=== PATIENT | female | born 1935 | race Caucasian/White ===

== ENCOUNTER 2016-12-28 17:07 | Inpatient (IN) | payer MEDICARE, OTHER ==
[~2016-12-28] VITALS: Ht 160 cm; Wt 47.9 kg
--- NOTE | ~2016-12-28 | DS ---
ADMIT: 12/28/2016 RM/LOC: 524 [facility] MR#: [id number] [facility]#: [id number] [address] [address] ANAIJACOB LESTERHENRY Mariajose [address] [place] [address] General Discharge Summary SEX: F AGE: 81 : 1935 ADMISSION DATE: 12/28/2016 DISCHARGE DATE: 01/03/2017 ADMITTING DIAGNOSIS: Right lower lobe pneumonia. DISMISSAL DIAGNOSIS: Chronic obstructive pulmonary disease with acute exacerbation. COMPLICATING DIAGNOSES: 1. Hypokalemia. 2. Chronic atrial fibrillation, on anticoagulant therapy. 3. Hypomagnesemia. 4. Hypertension. 5. Chronic back pain. 6. Chronic malnutrition, low BMI. CHIEF COMPLAINT AND HISTORY OF PRESENT ILLNESS: An 81-year-old female, lives at home independently. She does live with her son and he does help care for her. She has a history of ongoing severe COPD and long-term history of loss of appetite and low weight and low BMI. For the last 10 days, she has been having more trouble breathing, coughing up sputum. She thought it was just her chronic obstructive pulmonary disease; however, she started coughing up more than normal amount of sputum and the color was a little bit darker than normal. She had no fever and no chest pain, but she did feel chilled. There had been no blood in the sputum. She was seen in the office on December 21, started on Cefdinir 300 mg b.i.d. Over the next 2 days, she thought she was getting better, and then over the last 48 hours, she felt like she was getting worse, more shortness of breath, became severe enough that she was brought by her son to the emergency room. Evaluation in the emergency room revealed right lower lobe pneumonia. She admitted for community-acquired pneumonia, COPD acute exacerbation, admitted for IV antibiotics and nebulizer treatments. The emergency room, her INR was markedly elevated at 7.6. She has history of AFib and is on chronic Coumadin therapy. Potassium in the ER was low at 3.2. Blood sugar was low at 53. Magnesium was low at 0.5. Procalcitonin was borderline at 1.4. She was started on IV Rocephin and Zithromax along with Twin Jet nebulizer DuoNeb treatments. Initial cardiac enzymes were negative. LABORATORY REPORTS: White count on December 29 was 7.5; on dismissal, it is 5.9. Hemoglobin on December 29 was 11.2. On January 01, hemoglobin was 10.9. December 28, white count was 5.6, hemoglobin was 12.7, platelets were 495,000. INR on admission was 7.6; after pharmacy protocol with oral vitamin K, the following day was 1.2; on December 31, it was 1.1; January 01, it was 1.4; on January 02, it was 2.3; and on January 03, INR was 3.41. Electrolytes prior to dismissal; sodium 142, potassium 4.7, chloride 105, CO2 of 30, BUN 11, creatinine 0.9, glucose 82. On December 29, her potassium was 3.2, blood sugar was 56, ALT was low at 9, magnesium was low at 0.5, calcium was 8.2, proBNP was 1216. Repeat magnesium level on December 29 was 1.7. On December 31, magnesium was 2.2. Lactic acid in the emergency room was 1.3, which is normal. CPK-MB, troponin I were normal. In the emergency ADMIT: 12/28/2016 RM/LOC: 524 [facility] MR#: [id number] [address] [address] [place] [address] General Discharge Summary SEX: F AGE: 81 : 1935 room. Blood sugar initially as mentioned was low at 53, repeat 2 hours later was 128, and the following day 118. Blood cultures x2 showed no growth. Stool for C. diff on January 02, was positive. Additional diagnosis would be C. diff enteritis. RADIOLOGY REPORTS: CTA of the lungs did not show any signs of pulmonary embolus. There were 2 pulmonary nodules, most compatible with neoplasm. There were prominent interstitial markings in the right middle lobe. Chest x-ray in the ER showed a right lower lobe pneumonia. Repeat chest x-ray findings showed no change. Third day chest x-ray showed persistent markings that correlate to recent CT malignancy must be excluded. EKG shows sinus tachycardia with PVCs; PACs; left axis deviation; possible anterior infarct, age-undetermined; inferolateral ST-T changes due to ischemia; low-voltage. COURSE IN THE HOSPITAL: Andre was admitted through the emergency room. Cultures were obtained. She was started on IV Zithromax and Rocephin, given oral vitamin K. Continued with her DuoNeb Twin Jet nebulizers. Potassium and magnesium were replaced. INR became subtherapeutic after the vitamin K. She was placed on subcutaneous Lovenox until her INR became therapeutic. CT scans with nodules were discussed with her. These have been noted the past year. At that time, she and her family elected not to have these biopsied. She felt if they were malignant, she was not going to have any chemo or radiation or surgery done, so preferred just to monitor these. She understands that there are growing in size and likely could be lung cancer, but she did not want to go to have any further treatment of these. She was clinically improved enough that she is able to be dismissed on home O2 with oral cefdinir and Zithromax, to be seen back for followup in 3 to 4 days in the office. INR was elevated as her Coumadin was held on the day of dismissal. Her new Coumadin dose will ADMIT: 12/28/2016 RM/LOC: 524 [facility] MR#: [id number] [address] [place] [address] ANDRE CRUZ [address] [place] [address] General Discharge Summary SEX: F AGE: 81 : 1935 be 1 mg daily. Check INR in 3 days in the office. She had: 1. P.r.n. hydrocodone. 2. Mag oxide 400 b.i.d. 3. Neurontin 100 mg at bedtime. 4. Lisinopril 20 mg daily for blood pressure. 5. Norvasc 5 mg daily for blood pressure. 6. Protonix changed back to omeprazole 20 mg daily. 7. Remeron 30 mg at bedtime. 8. Vitamin D supplements. 9. DuoNeb Twin Jet nebulizers p.r.n. Shan Peña MD/ tosin JOB #: [id number] CC: Shan Peña MD, Attending Physician Shan Peña MD, Family Physician
--- NOTE | 2016-12-29 14:35 | ER ---
ADMIT: 12/28/2016 RM/LOC: 524 [facility] MR#: [id number] [address] [address] ANDRE CRUZ [address] [place] [address] Emergency Room Report SEX: F AGE: 81 : 1935 DATE: 12/28/2016 ADDENDUM: An 81-year-old white female coming in with shortness of breath, coughing up purulent sputum. She has cardiac disease, lung disease, and COPD, was put on some antibiotic, I think last Tuesday, but has gotten worse since then. X-ray looks like she has a right middle lobe pneumonia. White count 7.4. Lactate is normal, but her INR is elevated at 7.61. I do believe, though that she has some early pneumonia. Will do the rest of the sepsis. At this time, her pressure has been fine. We will start her on antibiotic here. I spoke with Dr. Lawler, he will admit. CONDITION ON DISCHARGE: Serious but stable. Glynn Linares MD/ tosin JOB #: [id number] CC: Shan Peña MD, Attending Physician Shan Peña MD, Family Physician
--- NOTE | 2016-12-31 07:16 | HP ---
ADMIT: 12/28/2016 RM/LOC: 524 [facility] MR#: [id number] [facility]#: [id number] [address] [address] ANDRE CRUZ [address] [place] [address] History and Physical SEX: F AGE: 81 : 1935 CORRECTION: 12/30/2016 1516 [facility] DATE OF SERVICE: CHIEF COMPLAINT: Cough and shortness of breath. HISTORY OF PRESENT ILLNESS: This 81-year-old female, lives at home independently, however, she does live with her son, does help care for her. Andre has history of ongoing tobacco abuse and chronic obstructive pulmonary disease. She also has a fairly marked malnutrition and long-term anorexia. She states for the last week to week and a half, she was having more trouble breathing, coughing up sputum, but she thought it was just her COPD. She thought she was coughing up the normal amount of sputum, normal color which is a little bit darker for her. There has been no chest pain. No fever but she has felt cold. There has been no blood in the sputum. I believe she was seen in the office on December 21. In any event, on that day, she was started on cefdinir 300 mg p.o. b.i.d. Over the next couple of days, she thought she was getting better and then over the last 48 hours, she felt like she was getting worse, more shortness of breath. Became severe enough last evening when her son came home from work. He brought her to the emergency room. Evaluation in the emergency room revealed a right lower lobe pneumonia, and she was admitted for community-acquired pneumonia, COPD acute exacerbation, for IV antibiotics and nebulizer treatments. Also in the emergency room, her INR was elevated at 7.6. Her potassium was low at 3.2. Her blood sugar was low at 53. Magnesium was fairly low at 0.5. Procalcitonin was in the borderline range at 1.4. Cultures were obtained. She was started on IV Rocephin, IV Zithromax along with Twin Jet nebulizer treatments. Initial cardiac enzymes were negative. PAST MEDICAL HISTORY: Remote history of hypertension, depression, osteoarthritis, previous back surgery with a laminectomy, history of ganglion cyst removal right wrist, history of right total knee in 2003, in 2005 total abdominal hysterectomy and bilateral salpingo-oophorectomy, in 2006 a cholecystectomy. She also has GERD. ALLERGIES: NONE. MEDICATIONS: Include: 1. Potassium 10 mEq t.i.d. 2. Norvasc 5 mg daily. 3. Benazepril 20 mg daily. 4. Neurontin 600 mg daily. 5. Xanax 0.25 mg t.i.d. p.r.n. anxiety. 6. Bupropion XL 150 mg p.o. daily. 7. Coumadin alternating 1 mg five days a week and 1.5 mg two days a week. 8. Omeprazole 40 mg daily. 9. Lortab 5 one b.i.d. for pain. 10.ProAir p.r.n. 11.Recent cefdinir 300 mg b.i.d. ADMIT: 12/28/2016 RM/LOC: 524 [facility] MR#: [id number] [address] [place] [id number] ANDRE CRUZ [address] [place] [address] History and Physical SEX: F AGE: 81 : 1935 12.Vitamin D 5000 units daily. 13.Albuterol nebulizer treatments p.r.n. SOCIAL HISTORY: She quit smoking in 2013. Does not use alcohol. As mentioned, she lives with her son and is fairly independent. FAMILY HISTORY: Positive for cancer in mother and grandmother. Sister with hypertension. Daughter with seizure disorder. REVIEW OF SYSTEMS: GENERAL: States her appetite has been declining over the last year or two. Her weight has been chronically low. She is 106 pounds now which is fairly close to her baseline of 110 pounds. She says she tries to take Ensure, but it gives her diarrhea. HEENT: Denies any headache, blurry vision, or double vision. PULMONARY: The cough, productive of yellowish greenish sputum but no blood in it. She has chronic obstructive pulmonary disease. She is on room air at home and nebulizer treatments at home. She does continue to use cigarettes half a pack to a pack per day. CARDIAC: History of hypertension, treated. She denies any chest pain. Additional cardiac would be history of atrial fibrillation that is why she is on the Coumadin. GI: Prior history of GERD and reflux, but it is fairly well controlled with the proton pump inhibitor. She also has some loose stools when she tries dietary supplements. : Denies any urinary issues. MUSCULOSKELETAL: Generalized weakness and osteoarthritis. Chronic back pain for which she takes Lortab. NEUROLOGICAL: Negative. PSYCH: Positive for anxiety and depression. The rest of the review of systems negative. PHYSICAL EXAMINATION: GENERAL: An 81-year-old female, appears cachectic. HEENT: Weight as mentioned 106 pounds. BP is 113/60, pulse is 88 and irregular, respiratory rate is 22, O2 saturation is 94% on room air. HEENT: Eyes PERRLA. EOMs intact. Sclerae nonicteric. TMs are not seen. Throat is moist, well hydrated, not inflamed. NECK: Supple. No lymphadenopathy. No thyromegaly. LUNGS: Show decreased breath sounds throughout with scattered rhonchi on the right lower lobe. Occasional expiratory wheeze. HEART: Irregularly irregular. Grade 1/6 systolic murmur. ABDOMEN: Soft. No organomegaly or tenderness. /RECTAL: Deferred. EXTREMITIES: No clubbing, cyanosis, or edema. LAB: As noted above. Her INR is elevated at 7.61, glucose is low at 56. Initially, she was given some orange juice and repeat blood sugar was 53. Potassium was low at 3.2. Lactic acid normal at 1.3. Magnesium low at 0.5. ADMIT: 12/28/2016 RM/LOC: 524 [facility] MR#: [id number] [address] [facility] [address] [place] [id number] [address] [address] History and Physical SEX: F AGE: 81 : 1935 Procalcitonin borderline at 1.4. DIAGNOSTIC IMPRESSION: 1. Right lower lobe pneumonia. 2. Chronic obstructive pulmonary disease, acute exacerbation. 3. Hypomagnesemia. 4. Hypokalemia. 5. Atrial fibrillation, on Coumadin therapy with a supratherapeutic INR. 6. Hypertension. 7. Chronic back pain. PLAN: She was admitted. Cultures were obtained. She was started on IV Rocephin, IV Zithromax. Coumadin was held. She is placed on INR reversal protocol per Pharmacy with oral vitamin K. We will monitor her INR. She was given oral potassium, oral magnesium plus some IV magnesium. We will add potassium to her IV. We will monitor electrolytes and nutritional supplements. Shan Peña MD/ tosin JOB #: [id number] CC: Shan Peña MD, Attending Physician Shan Peña MD, Family Physician CORRECTION: 12/30/2016 1516 [facility]
[2017-01-04] MEDS ORDERED: AMLODIPINE-BEN1 EAC4 PO (16:08)
[2017-01-04] MEDS ORDERED: NEURONTIN DPS100 MG PO (16:08)
[2017-01-04] MEDS ORDERED: XANAX DPS0.25 MG PO (16:08)
[2017-01-04] MEDS ORDERED: BUPROPION XL150 MG PO (16:09)
[2017-01-04] MEDS ORDERED: HYDROCODON-ACE1 EAC4 PO (16:09)
[2017-01-04] MEDS ORDERED: OMEPRAZOLE40 MG PO (16:09)
[2017-01-04] MEDS ORDERED: REMERON30 MG PO (16:10)
[2017-01-04] MEDS ORDERED: PROAIR HFA8.5 GM IH (16:10)
[2017-01-04] MEDS ORDERED: MAG-OX400 MG PO (16:10)
[2017-01-04] MEDS ORDERED: VITAMIN D35000 UNI1 PO (16:10)
[2017-01-04] MEDS ORDERED: ACCUNEB DP1.25 MG/3 IH (16:10)
[2017-01-04] MEDS ORDERED: FLAGYL-DPS250 MG PO (16:11)
[2017-01-04] MEDS ORDERED: TYLENOL DPS325 MG PO (16:11)
== END 2017-01-03 17:05 | disposition home health service (06) | DRG 190 ==
LOC: ER 17:07 → 5MS 19:07
PROVIDERS: ADMIT Family Medicine
DX: J44.0 Chronic obstructive pulmonary disease with (acute) lower respiratory infection (principal); J18.9 Pneumonia, unspecified organism; E43 Unspecified severe protein-calorie malnutrition; A04.7 Enterocolitis due to Clostridium difficile; I48.91 Unspecified atrial fibrillation; Z68.1 Body mass index [BMI] 19.9 or less, adult; E87.6 Hypokalemia; E83.42 Hypomagnesemia; I10 Essential (primary) hypertension; R79.1 Abnormal coagulation profile; F32.9 Major depressive disorder, single episode, unspecified; J44.1 Chronic obstructive pulmonary disease with (acute) exacerbation; K21.9 Gastro-esophageal reflux disease without esophagitis; G89.29 Other chronic pain; R91.8 Other nonspecific abnormal finding of lung field; M54.9 Dorsalgia, unspecified; F41.9 Anxiety disorder, unspecified; M19.90 Unspecified osteoarthritis, unspecified site; Z96.651 Presence of right artificial knee joint; Z79.01 Long term (current) use of anticoagulants; Z87.891 Personal history of nicotine dependence